=== PATIENT | female | born 1990 | race Two or more races ===

== ENCOUNTER → 2023-05-19 | Emergency (ER) | payer OTHER ==
[~2023-05-19] VITALS: Ht 175.3 cm; Wt 68.0 kg
[~2023-05-19] MED LIST: ALLERGY RELIE15.8 ML; CLARITIN5 MG/5 ML
== END | disposition left against medical advice (07) ==
LOC: ER 17:01
DX: Z53.21 Procedure and treatment not carried out due to patient leaving prior to being seen by health care provider (principal)